=== PATIENT | female | born 1940 ===

== ENCOUNTER 2020-09-14 15:29 | Outpatient (REF) | payer SELFPAY | END 2020-09-14 15:30 | disposition home or self-care (01) | LOC: HO.HAP 15:29 | PROVIDERS: Visit Provider Internal Medicine | DX: Z46.1 Encounter for fitting and adjustment of hearing aid (principal); H90.3 Sensorineural hearing loss, bilateral | CPT/HCPCS: V5299 ==

== ENCOUNTER 2023-01-17 13:05 | Outpatient (REF) | payer MEDICARE, OTHER, SELFPAY | END 2023-01-17 13:06 | disposition home or self-care (01) | LOC: HO.SH 13:05 | PROVIDERS: Visit Provider Internal Medicine | DX: Z01.118 Encounter for examination of ears and hearing with other abnormal findings (principal); H90.3 Sensorineural hearing loss, bilateral | CPT/HCPCS: 92557 ==

== ENCOUNTER 2023-01-17 14:54 | Outpatient (REF) | payer SELFPAY ==
--- NOTE | 2023-01-17 15:45 | MHC.AU.HA1 ---
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 Left ear: [employer]on Opn 3 ITE. Summary: Debra has noticed her current hearing aids do not seem powerful enough for her current hearing loss. She is interested in pursuing updated technology and is hoping to have a matching pair of hearing aids as she believes her insurance is now available per ear. She has been wearing a very old backup aid in her right ear (from [employer] as her Guadalupe Pro cracked. Discussed options, probably not interested in phone compatibility, selected Own 3 full shell with volume wheel and push button. Not interested in rechargeable aids. Impressions taken without incident. Return for fitting once aids arrive in clinic. Hearing Aid Prescription: Based on the individual?s shared listening needs, communication environments, dexterity, desire for connectivity, and personal preferences, the following prescription for amplification has been made: Right ear: Make, Model, Color: O[employer]on Own 2 ITE Battery Size: 312 Left ear: Left ear prescription to be same as Right Hearing Aid above: Make, Model, Color: [employer]on Own 2 ITE Battery Size: 312 Plan of Care: Patient wishes to purchase hearing aids as prescribed Action Taken/Action Needed: Earmold Impressions Taken Medical Clearance to be requested from PCP/ENT Hearing Instrument Fitting to be scheduled when materials arrive Primary Diagnosis: H90.3 Bilateral Sensorineural Hearing Loss Secondary Diagnosis: Signature: Provider: Cristian Cervantes, CCC-A
--- NOTE | 2023-01-20 13:03 | MHC.AU.MED ---
Medical Clearance for Hearing Instrumentation Date: 01/17/23 Patient Name: Debra Gold Date of : 1940 Primary Care Provider: Referring Provider: Shon May MD We have seen your patient on 01/17/23 and have determined that they are a candidate for amplification (See accompanying report). Specifically, they would benefit from: Hearing aid use in both ears There is a statute that addresses Medical Evaluation Requirements prior to fitting a patient with a hearing aid. According to [place] statute 265 CMR:6.03(1), (a) General. Except as provided in 265 CMR 6.03(1)(b), a health spa manager shall not sell a hearing aid unless the prospective user has presented to the health spa manager a written statement signed by a licensed physician that states that the patient's hearing loss has been medically evaluated and the patient may be considered a candidate for a hearing aid. The medical evaluation must have taken place within the preceding six months. Please note: Due to the [place] Statute referenced above, we cannot accept a signature other than that of a licensed physician. GEOGRAPHIC INFORMATION SYSTEMS ANALYST and PA signatures cannot be accepted. I am in agreement with the above recommendation. There is no medical contraindication for hearing instrumentation. Physician Signature Date Physician Name (Printed)
== END 2023-01-17 14:55 | disposition home or self-care (01) ==
LOC: HO.HAP 14:54
PROVIDERS: Visit Provider Internal Medicine
DX: Z46.1 Encounter for fitting and adjustment of hearing aid (principal); H90.3 Sensorineural hearing loss, bilateral
CPT/HCPCS: 92590

== ENCOUNTER 2023-02-27 15:03 | Outpatient (REF) | payer SELFPAY ==
--- NOTE | 2023-02-28 10:35 | MHC.AU.HA2 ---
Hearing Instrument Fitting- Adult- Binaural Date of Visit: 02/27/23 Hearing Instruments Dispensed: Right Ear: Make, Model, Color, Serial Number: Oticon Own 2 ITE SN [id number] Booth Operator Repair Warranty: 03/05/2026 Booth Operator Loss and Damage Warranty: 03/05/2026 [facility] Service Plan: n/a Battery Size: 312 Type of Wax Guard: ProWax MiniFit Left Ear: Make, Model, Color, Serial Number: [employer]on Own 2 ITE SN [id number] Booth Operator Repair Warranty: 03/05/2026 Booth Operator Loss and Damage Warranty: 03/05/2026 [facility] Service Plan: n/a Battery Size: 312 Type of Wax Guard: ProWax MiniFit Summary of Fitting: Debra visited for fitting with Oticon Own 2 ITEs. VC wheel active as it was on her previous aids. Programmed and verified to NAL-NL2 real ear targets. Experienced hearing aid user; reviewed basics of cleaning. Opted out of service plan. Follow up in 3 weeks. Recommendations: Recommendations: A hearing instrument follow-up was scheduled. Diagnosis Code(s): Primary Diagnosis: H90.3 Bilateral Sensorineural Hearing Loss Signature: Provider: Cristian Cervantes, CCC-A
== END 2023-02-27 15:04 | disposition home or self-care (01) ==
LOC: HO.HAP 15:03
PROVIDERS: Visit Provider Internal Medicine
DX: Z46.1 Encounter for fitting and adjustment of hearing aid (principal); H90.3 Sensorineural hearing loss, bilateral
CPT/HCPCS: 92700; V5260

== ENCOUNTER 2023-03-13 13:54 | Outpatient (REF) | payer SELFPAY ==
--- NOTE | 2023-03-14 15:46 | MHC.AU.HA3 ---
Hearing Instrument Follow-Up- Binaural Date of Visit: 03/13/23 Right Ear: Make, Model, Color, Serial Number: O[employer]on Own 2 ITE SN [id number] Sql Et[employer] Developer Repair Warranty: 03/05/2026 [employer] Developer Loss and Damage Warranty: 03/05/2026 [facility] Service Plan: n/a Battery Size: 312 Type of Wax Guard: ProWax MiniFit Left Ear: Make, Model, Color, Serial Number: Oticon Own 2 ITE SN [id number] [employer] Et[employer] Developer Repair Warranty: 03/05/2026 [employer] Developer Loss and Damage Warranty: 03/05/2026 [facility] Service Plan: n/a Battery Size: 312 Type of Wax Guard: ProWax MiniFit Follow-Up Summary: Debra reports improved sound quality with her new aids compared to her old ones, but is unhappy with the physical fit as they protrude from her ears much more than her previous aids. She has accidentally knocked them out with her earmuffs. Called [employer] to discuss options for smaller size, Nerissa in audiology has reached out to the modelling team and will email me recommendations. Debra would like to be called prior to confirming changes for remake. Recommendations: Recommendations: Patient will be contacted when materials have arrived. Diagnosis Code(s): Primary Diagnosis: H90.3 Bilateral Sensorineural Hearing Loss Signature: Provider: Cristian Cervantes, [facility]
== END 2023-03-13 13:55 | disposition home or self-care (01) ==
LOC: HO.HAP 13:54
PROVIDERS: Visit Provider Internal Medicine
DX: Z13.89 Encounter for screening for other disorder (principal)

== ENCOUNTER 2023-04-24 13:00 | Outpatient (REF) | payer SELFPAY | END 2023-04-24 13:01 | disposition home or self-care (01) | LOC: HO.HAP 13:00 | PROVIDERS: Visit Provider Internal Medicine | DX: Z13.89 Encounter for screening for other disorder (principal) ==